=== PATIENT | female | born 1995 | race Caucasian/White ===

== ENCOUNTER 2019-04-29 14:21 | Emergency (ER) | payer OTHER ==
[~2019-04-29] VITALS: Ht 154.9 cm; Wt 56.7 kg
[2019-04-29] MEDS ORDERED: IV NORMAL SALINE 1000 ML BAG IV ONE (14:30)
[2019-04-29] MEDS ORDERED: KETOROLAC TROMETHAMINE 30 MG INJ IVP ONE (14:30)
[2019-04-29] MEDS ORDERED: ONDANSETRON 4 MG/2 ML VIAL IV ONE (14:30)
[2019-04-29] MEDS ORDERED: ONDANSETRON 4 MG/2 ML VIAL ONE (14:34)
[2019-04-29] MEDS ORDERED: KETOROLAC TROMETHAMINE 30 MG INJ ONE (14:34)
--- NOTE | 2019-04-29 15:18 | NUR ---
Pt denies dizziness, and nausea at this time.
--- NOTE | 2019-04-29 16:00 | NUR ---
PT ABLE TO AMBULATE W/O FEELING DIZZY.
[2019-04-29 16:19] VITALS: BP 106/66
--- NOTE | 2019-04-29 16:20 | NUR ---
Patient discharged to home in stable conditon. Written and verbal after care instructions given. Patient verbalizes understanding of instructions.
== END 2019-04-29 16:22 | disposition home or self-care (01) ==
LOC: ER 14:21
DX: O03.9 Complete or unspecified spontaneous abortion without complication (principal)
CPT/HCPCS: 96361; 96374; 96375; 99283; J1885; J2405; A4663; J7030